=== PATIENT | male | born 1935 | race African-American/Black ===

== ENCOUNTER 2021-01-28 14:19 | Inpatient (IN) | payer MEDICARE ==
[~2021-01-28] VITALS: Ht 185.4 cm; Wt 72.6 kg
[2021-01-28 15:39] LABS: BASOPHILS % 0.4 % (0.0-2.0); EOSINOPHILS % 1.8 % (0.0-5.0); HEMATOCRIT. 31.4 % (42.0-52.0); HEMOGLOBIN. 10.1 g/dL (14.0-18.0); LYMPHOCYTES % 12.1 % (20.0-50.0); MEAN CORPUSCULAR HEMOGLOBIN 29.7 pg (28.0-32.0); MEAN CORPUSCULAR VOLUME 91.9 fL (80.0-94.0); MEAN PLATELET VOLUME 10.9 fl (7.4-10.4); MONOCYTES % 12.4 % (2.0-8.0); NEUTROPHILS % 73.3 % (40.0-76.0); PLATELET 70 x1000/uL (130-400); RED BLOOD CELL COUNT 3.41 mill/uL (4.7-6.1); RED CELL DISTRIBUTION WIDTH 18.3 % (11.6-14.6)
[2021-01-28 15:44] LABS: CHLORIDE 112 mEq/L (98-107)
[2021-01-28] MEDS ORDERED: VANCOMYCIN 1 G PREMIX 200 ML IV ONE (17:30)
[2021-01-28] MEDS ORDERED: PIPERACILLIN/TAZ 3.375G PREMIX 50 ML IV ONE (17:30)
[2021-01-28 17:50] LABS: BG BASE EXCESS -3.9 mmol/L (-2.0-2.0); BG CARBOXYHEMOGLOBIN 0.3 % (0.5-1.5); BG DEOXYHEMOGLOBIN 1.7 % (0.0-5.0); BG FRACTION INSPIRED OXYGEN 21; BG HCO3 ACT 18.1 mmol/L (22.0-26.0); BG METHEMOGLOBIN 0.1 % (0.0-1.5); BG OXYGEN SATURATION 98.3 % (92.0-98.5); BG OXYHEMOGLOBIN 97.9 % (94.0-97.0); BG PCO2 23.9 mmHg (35.0-45.0); BG PH 7.497 (7.350-7.450); BG PO2 120.6 mmHg (75.0-100.0); BG SAMPLE SITE RIGHT RADIAL; BG TOTAL HEMOGLOBIN 10.4 g/dL (12.0-18.0); BG VENT MODE ROOM AIR
[2021-01-28 19:56] LABS: CLARITY URINE CLEAR (CLEAR); COLOR URINE YELLOW (YELLOW); KETONES URINE NEGATIVE (NEGATIVE); LEUKOCYTE ESTERASE URINE NEGATIVE (NEGATIVE); NITRITE URINE NEGATIVE (NEGATIVE); OCCULT BLOOD URINE NEGATIVE (NEGATIVE); PH URINE 7.5 (4.5-8.0); PROTEIN URINE NEGATIVE (NEGATIVE); SPECIFIC GRAVITY URINE 1.014 (1.005-1.030)
[2021-01-28] MEDS ORDERED: ONDANSETRON HCL 4MG/2ML INJ IV PRN (21:15)
[2021-01-28] MEDS ORDERED: IPRATROPIUM/ALBUTEROL 0.5-3(2.5)MG/3ML NEB HHN PRN (21:15)
[2021-01-28] MEDS ORDERED: ENOXAPARIN 40MG/0.4ML SYR SUBCUT SCH (21:15)
[2021-01-28] MEDS ORDERED: ZOLPIDEM TARTRATE 5MG TABLET PO PRN (21:15)
[2021-01-28] MEDS ORDERED: DIPHENHYDRAMINE 50MG/ML VIAL IV PRN (21:15)
[2021-01-28] MEDS ORDERED: ACETAMINOPHEN 325MG TABLET PO PRN ×2 (21:15)
[2021-01-28] MEDS: SODIUM CHLORIDE 0.9% INJ 3ML FLUSH IVF SCH (22:10)
[2021-01-29] VITALS (7 sets, daily range): BP systolic 82–100; BP diastolic 44–58
[2021-01-29] MEDS ORDERED: CARV6.2548 PO (02:13)
[2021-01-29] MEDS ORDERED: FURO40TA5 PO (02:13)
[2021-01-29] MEDS ORDERED: XAR15 PO (02:13)
[2021-01-29] MEDS: SODIUM CHLORIDE 0.9% INJ 3ML FLUSH IVF SCH ×3 (07:00→21:32)
[2021-01-29] MEDS ORDERED: FUROSEMIDE 40MG/4ML VIAL IVP SCH (12:30)
[2021-01-29] MEDS: MIDODRINE HCL 5MG TABLET PO SCH ×2 (12:52→18:13)
[2021-01-29] MEDS: NYSTATIN POWDER 15GM TOP SCH ×3 (14:00→21:32)
[2021-01-30] VITALS: BP 101/52
[2021-01-30 04:00] VITALS: BP 113/60
[2021-01-30] MEDS: SODIUM CHLORIDE 0.9% INJ 3ML FLUSH IVF SCH ×3 (05:23→22:17)
[2021-01-30 06:54] LABS: HEMATOCRIT. 29.2 % (42.0-52.0); HEMOGLOBIN. 9.6 g/dL (14.0-18.0); MEAN CORPUSCULAR HEMOGLOBIN 30.4 pg (28.0-32.0); MEAN CORPUSCULAR VOLUME 92.2 fL (80.0-94.0); MEAN PLATELET VOLUME 10.9 fl (7.4-10.4); PLATELET 69 x1000/uL (130-400); RED BLOOD CELL COUNT 3.17 mill/uL (4.7-6.1); RED CELL DISTRIBUTION WIDTH 18.2 % (11.6-14.6)
[2021-01-30 06:55] LABS: CHLORIDE 114 mEq/L (98-107)
[2021-01-30 08:00] VITALS: BP 97/57
[2021-01-30] MEDS: FUROSEMIDE 40MG TABLET PO SCH (08:19)
[2021-01-30] MEDS: MIDODRINE HCL 5MG TABLET PO SCH ×3 (08:19→18:22)
[2021-01-30] MEDS: NYSTATIN POWDER 15GM TOP SCH ×5 (08:20→22:38)
[2021-01-30 12:00] VITALS: BP 97/63
[2021-01-30 12:15] LABS: PLATELET ESTIMATE DECREASED
[2021-01-30] MEDS ORDERED: VANCOMYCIN 1250MG in DEXTROSE 5% WATER 250ML IV SCH (14:00)
[2021-01-30 16:00] VITALS: BP 98/62
[2021-01-30 20:00] VITALS: BP 102/60
[2021-01-31] VITALS: BP 99/48
[2021-01-31 04:00] VITALS: BP 101/72
[2021-01-31] MEDS: SODIUM CHLORIDE 0.9% INJ 3ML FLUSH IVF SCH ×3 (07:02→20:40)
[2021-01-31 08:00] VITALS: BP 102/62
[2021-01-31 09:05] LABS: CHLORIDE 113 mEq/L (98-107)
[2021-01-31] MEDS: NYSTATIN POWDER 15GM TOP SCH ×4 (09:33→21:00)
[2021-01-31] MEDS: MIDODRINE HCL 5MG TABLET PO SCH ×3 (09:33→17:25)
[2021-01-31] MEDS: FUROSEMIDE 40MG TABLET PO SCH (09:33)
[2021-01-31 12:00] VITALS: BP 106/67
[2021-01-31 16:00] VITALS: BP 98/68
[2021-01-31 20:00] VITALS: BP 94/63
[2021-01-31] MEDS ORDERED: VANCOMYCIN 750 MG PREMIX 150 ML IV SCH ×2 (20:00)
[2021-02-01] VITALS: BP 98/57
[2021-02-01 04:00] VITALS: BP 103/63
[2021-02-01] MEDS: SODIUM CHLORIDE 0.9% INJ 3ML FLUSH IVF SCH ×3 (05:19→20:03)
[2021-02-01 06:44] LABS: BASOPHILS % 1.2 % (0.0-2.0); EOSINOPHILS % 1.7 % (0.0-5.0); HEMATOCRIT. 31.8 % (42.0-52.0); HEMOGLOBIN. 10.3 g/dL (14.0-18.0); LYMPHOCYTES % 17.6 % (20.0-50.0); MEAN CORPUSCULAR HEMOGLOBIN 30.1 pg (28.0-32.0); MEAN CORPUSCULAR VOLUME 92.7 fL (80.0-94.0); MEAN PLATELET VOLUME 11.3 fl (7.4-10.4); MONOCYTES % 11.8 % (2.0-8.0); NEUTROPHILS % 67.7 % (40.0-76.0); PLATELET 89 x1000/uL (130-400); RED BLOOD CELL COUNT 3.43 mill/uL (4.7-6.1); RED CELL DISTRIBUTION WIDTH 18.8 % (11.6-14.6)
[2021-02-01] MEDS: NYSTATIN POWDER 15GM TOP SCH ×5 (09:14→20:03)
[2021-02-01] MEDS: MIDODRINE HCL 5MG TABLET PO SCH ×3 (09:15→17:24)
[2021-02-01 12:00] VITALS: BP 96/63
[2021-02-01 16:00] VITALS: BP 91/47
[2021-02-01 20:00] VITALS: BP 95/64
[2021-02-02] VITALS (7 sets, daily range): BP systolic 86–133; BP diastolic 51–111
[2021-02-02] MEDS: SODIUM CHLORIDE 0.9% INJ 3ML FLUSH IVF SCH ×3 (06:16→21:29)
[2021-02-02 08:08] LABS: BASOPHILS % 0.7 % (0.0-2.0); EOSINOPHILS % 1.4 % (0.0-5.0); HEMATOCRIT. 33.5 % (42.0-52.0); HEMOGLOBIN. 10.8 g/dL (14.0-18.0); LYMPHOCYTES % 14.6 % (20.0-50.0); MEAN CORPUSCULAR VOLUME 92.7 fL (80.0-94.0); MEAN PLATELET VOLUME 11.6 fl (7.4-10.4); MONOCYTES % 10.6 % (2.0-8.0); NEUTROPHILS % 72.7 % (40.0-76.0); PLATELET 94 x1000/uL (130-400); RED BLOOD CELL COUNT 3.61 mill/uL (4.7-6.1); RED CELL DISTRIBUTION WIDTH 19.1 % (11.6-14.6)
[2021-02-02] MEDS: NYSTATIN POWDER 15GM TOP SCH ×5 (09:00→21:31)
[2021-02-02] MEDS: MIDODRINE HCL 5MG TABLET PO SCH ×3 (09:07→17:40)
[2021-02-02] MEDS ORDERED: IPRA3AMP9 HHN (18:48)
[2021-02-03] VITALS: BP 103/61
[2021-02-03 04:00] VITALS: BP 97/54
[2021-02-03] MEDS: SODIUM CHLORIDE 0.9% INJ 3ML FLUSH IVF SCH ×2 (05:33→11:59)
[2021-02-03 06:58] LABS: HEMATOCRIT. 32.3 % (42.0-52.0); HEMOGLOBIN. 10.5 g/dL (14.0-18.0); MEAN CORPUSCULAR HEMOGLOBIN 30.4 pg (28.0-32.0); MEAN CORPUSCULAR VOLUME 93.7 fL (80.0-94.0); MEAN PLATELET VOLUME 11.4 fl (7.4-10.4); PLATELET 107 x1000/uL (130-400); RED BLOOD CELL COUNT 3.45 mill/uL (4.7-6.1); RED CELL DISTRIBUTION WIDTH 18.7 % (11.6-14.6)
[2021-02-03 08:00] VITALS: BP 109/65
[2021-02-03] MEDS: NYSTATIN POWDER 15GM TOP SCH ×3 (08:30→17:00)
[2021-02-03] MEDS: MIDODRINE HCL 5MG TABLET PO SCH ×3 (08:31→17:30)
[2021-02-03 12:00] VITALS: BP 96/63
[2021-02-03 14:10] VITALS: BP 96/63
[2021-02-03 16:00] VITALS: BP 103/65
[2021-02-03 16:38] LABS: NUCLEATED RED BLOOD CELLS 2 /100 WBC; PLATELET ESTIMATE DECREASED
== END 2021-02-03 18:27 | DRG 193 ==
LOC: ER 14:41 → 7EST 17:39 → ENRESERV 22:22
PROVIDERS: ADMIT Internal Medicine; ATTEND Internal Medicine
PROC: 4B02XTZ Measurement of Cardiac Defibrillator, External Approach (ICD-10-PCS; principal; 2021-01-29)
DX: J18.9 Pneumonia, unspecified organism (principal); E43 Unspecified severe protein-calorie malnutrition; I50.43 Acute on chronic combined systolic (congestive) and diastolic (congestive) heart failure; E87.2 Acidosis; F05 Delirium due to known physiological condition; J93.9 Pneumothorax, unspecified; I42.9 Cardiomyopathy, unspecified; I11.0 Hypertensive heart disease with heart failure; D69.6 Thrombocytopenia, unspecified; E03.9 Hypothyroidism, unspecified; I25.10 Atherosclerotic heart disease of native coronary artery without angina pectoris; I27.21 Secondary pulmonary arterial hypertension; I44.0 Atrioventricular block, first degree; I44.7 Left bundle-branch block, unspecified; I48.0 Paroxysmal atrial fibrillation; I87.2 Venous insufficiency (chronic) (peripheral); M19.90 Unspecified osteoarthritis, unspecified site; Z20.822 Contact with and (suspected) exposure to COVID-19; R41.89 Other symptoms and signs involving cognitive functions and awareness; S91.111A Laceration without foreign body of right great toe without damage to nail, initial encounter; X58.XXXA Exposure to other specified factors, initial encounter; L30.9 Dermatitis, unspecified; I34.0 Nonrheumatic mitral (valve) insufficiency; Z78.1 Physical restraint status; Z79.01 Long term (current) use of anticoagulants; Z79.899 Other long term (current) drug therapy; Z86.11 Personal history of tuberculosis; Z95.810 Presence of automatic (implantable) cardiac defibrillator; Z68.21 Body mass index [BMI] 21.0-21.9, adult; Y93.89 Activity, other specified; Y92.89 Other specified places as the place of occurrence of the external cause; Y99.8 Other external cause status
CPT/HCPCS: 36415; 36600; 71045; 71250; 80048; 80053; 80202; 81003; 82040; 82140; 82375; 82805; 83605; 83615; 83735; 83880; 84134; 84145; 84443; 84484; 85025; 87426; 93005; 93306; 93923; 93970; 97110; 97116; 97161; 97166; 99291; J1940; J2543; J3370; J7060